=== PATIENT | male | born 1985 | race Caucasian/White ===

== ENCOUNTER 2018-10-29 17:16 | Emergency (ER) | payer OTHER, SELFPAY ==
[2018-10-29 17:17] VITALS: BP 116/71; PULSE 117; RESP 20; TEMP 37.1; O2SAT 97; BMI 25.1
--- NOTE | 2018-10-29 17:48 | EKG12_ITS ---
Test Reason : SYNCOPE Blood Pressure : / mmHG Vent. Rate : 088 BPM Atrial Rate : 088 BPM P-R Int : 158 ms QRS Dur : 080 ms QT Int : 344 ms P-R-T Axes : 066 057 067 degrees QTc Int : 416 ms Normal sinus rhythm Normal ECG Confirmed by ALIN SMALLS, LATANYA ([id number]), art editor JOSE AVALOS ([id number] on 11/01/2018 11:44:56 AM Referred By: DIAZ Confirmed By:LISS OGDEN MD
--- NOTE | 2018-10-29 17:50 | ED.DCSUM_ITS ---
- ER Visit Summary Date of Service: 10/29/18 Chief Complaint: Passed out x2 today History of Present Illness: The patient is a 33 M history of depression and chronic pelvic pain of uncertain cause. States his been worked up for that at length by the [facility] and other facilities. States he was cooking today and passed out x2. Denies any headache, chest pain or shortness of breath. No abdominal pain. He denies any nausea, vomiting or diarrhea. States he has not passed out before. Physical Examination: Young male no acute distress vital signs stable afebrile. H EENT exam unremarkable. Neck nontender. Lungs clear to auscultation bilaterally. Heart regular rhythm rate about 100 no murmur. Chest were nontender. Abdomen soft nontender. Bowel sounds no peritoneal signs. Patient moving all 4 extremities. Neurovascular intact. Calves are nontender without edema or cords. Equal symmetrical 5-5 sleep manager strength. Dorsi plantarflexion intact. Neurologically he is awake alert with no focal motor deficits. NIH score is 0. Test Results: White count of 9. Hemoglobin 16. No bands. Chemistries unremarkable normal gap of 11 creatinine 1.2 glucose 154. UA negative. EKG sinus rhythm rate 88 no acute signs of OK or ischemia. Orthostatic vital signs were negative. Emergency Department Course and Treatment: Patient with syncope x2. With a completely normal physical exam. Repeat exam at 22:01 PM patient is doing well. Exam is unchanged. I went over all test results with both he and his significant other. They are comfortable being discharged home with outpatient follow-up in the vagina area. Treatment Plan: Follow-up with local PCP. Disposition: Discharge Impression: Acute syncope uncertain etiology This note was generated with [facility] dictation software. It may contain incorrect words, spelling, and punctuation that were not noted in review of the chart prior to signing
[2018-10-29 17:59] LABS: Absolute Lymphocyte Count 1.06 X10^3/uL (0.83-4.51); Absolute Neutrophil Count 7.9 X10^3/uL (2.0-7.7); Basophil# 0.03 X10^3/uL; Basophil% 0.3 % (0-1); Eosinophil# 0.02 X10^3/uL; Eosinophils% 0.2 % (0-5); Hematocrit 49.1 % (40-54); Hemoglobin 16.7 g/dL (13.0-16.5); Lymphocyte # 1.06 X10^3/ul (4.0); Mean Corpuscular Hgb 29.9 pg (27.0-32.0); Mean Corpuscular Volume 87.8 fL (80-94); Mean Platelet Vol. 9.7 fl (6.2-12.0); Monocyte# 0.56 X10^3/uL; Monocyte% 5.8 % (0-10); NRBC Flagged by Analyzer 0 % (0-5); Neutrophil # 7.94 X10^3/uL (2.7-7.7); Neutrophil % 82.4 % (47-70); Platelet Count 188 K/mm3 (150-450); RBC Distribution Width CV 11.9 % (11.6-14.6); RBC Distribution Width SD 38.7 fl (35.1-43.9); Red Blood Count 5.59 M/mm3 (4.6-6.2); White Blood Count 9.6 K/mm3 (4.4-11.0)
[2018-10-29 18:11] LABS: Anion Gap 11 (5-15); BUN 16 mg/dL (7-18); BUN/Creat Ratio 12.9 RATIO (10-20); Chloride 108 mmol/L (98-107); Creatinine, Serum 1.24 mg/dL (0.70-1.30); EST Glomerular Filtration Rate 72 mL/min (>60); Est Glom Filt Rate - Afr Amer 87 mL/min (>60); Estimated Creatinine Clearance 86.32 ml/min; Glucose 154 mg/dL (74-106); Potassium 3.6 mmol/L (3.5-5.1); Sodium Level 144 mmol/L (136-145)
[2018-10-29 18:13] VITALS: BP 108/75; BP 119/71; PULSE 117; PULSE 134; PULSE 91
[2018-10-29 19:44] LABS: Bacteria 0 SEEN /hpf (None Seen); Squamous Epithelial Cells - UA 0 SEEN /hpf (0-5)
[2018-10-29 19:45] LABS: Color, Urine Yellow (Yellow); Glucose, Dipstick Normal (Normal); Ketone-Dipstick Negative (Negative); Leukocyte Esterase-Dipstick 25 /ul (Negative); Nitrite-Dipstick Negative (Negative); Occult Blood-Urine 25 /ul (Negative); Protein-Dipstick 30 mg/dl (Negative); Specific Gravity, Urine 1.025 (1.002-1.030); Urine Clarity Cloudy (Clear); Urine Urobilinogen 1 mg/dl (Normal)
[2018-10-29 19:48] LABS: Urine Bilirubin Dipstick 1 mg/dL (Negative)
[2018-10-29 19:59] LABS: Mucous, Urine 4+ /hpf (<or=2+)
[2018-10-29 20:00] LABS: Hyaline Cast 0-5 SEEN /lpf (0-5)
[2018-10-29 20:01] LABS: White Blood Cells 0-5 SEEN /hpf (0-5)
[2018-10-29 20:04] LABS: Red Blood Cells-Urine 0-5 SEEN /hpf (0-5)
[2018-10-29 20:34] VITALS: BP 117/77; PULSE 93; RESP 12; O2SAT 96
--- NOTE | 2018-10-29 22:06 | ED.DEP ---
ED Disposition - Plan for ED Patient: Disposition: Home or Assisted Living Instructions: SYNCOPE, Unk Cause Referrals: Syed Núñez MD [STAFF PHYSICIAN] - As soon as possible Additional Instructions: Follow-up with primary care physician in your area or the one I referred you to. Return if feeling worse.
[2018-10-29 22:10] VITALS: BP 130/72; PULSE 99; RESP 12; O2SAT 98
[2018-10-29 22:11] VITALS: BP 121/78; PULSE 98; RESP 16; O2SAT 97
== END 2018-10-29 22:32 | disposition home or self-care (01) ==
PROVIDERS: Emergency Provider Emergency Medicine
DX: R55 Syncope and collapse (principal); F32.9 Major depressive disorder, single episode, unspecified; Z79.899 Other long term (current) drug therapy; Z72.0 Tobacco use
CPT/HCPCS: 80048; 81001; 85025; 93005; 99285; J7030; A4216